=== PATIENT | male | born 1990 | race Caucasian/White ===

== ENCOUNTER → 2016-12-08 | Outpatient (CLI) | payer MEDICARE ==
--- NOTE | 2016-12-08 09:46 | XR ---
Cervical spine HISTORY: Down syndrome, sports physical 5 views of the cervical spine correlated to prior cervical spine CT May 2011 There is head tilt towards the left. Spinal curvature present in the thoracic spine. No significant f oraminal encroachment on oblique views. Cervical vertebral bodies show preserved height, alignment, a nd bone mineralization. Prevertebral soft tissues are within normal limits. Disc spaces are maintain ed. IMPRESSION: Thoracic scoliosis is suspected.
--- NOTE | 2016-12-08 10:06 | ECHOF ---
Referral Reason:Q90.0 down syndrome Z02.5 sports physical MEASUREMENTS -------- HEIGHT: 157.5 cm WEIGHT: 65.8 kg BP: 140/76 RVIDd: 2.0 cm (< 3.3) IVSd: 0.7 cm (0.6 - 1.1) LVIDd: 3.7 cm (3.9 - 5.3) LVPWd: 0.9 cm (0.6 - 1.1) IVSs: 1.2 cm LVIDs: 2.8 cm LVPWs: 1.2 cm LA Diam: 2.2 cm (2.7 - 3.8) Ao Diam: 2.2 cm (2.0 - 3.7) AV Cusp: 1.5 cm (1.5 - 2.6) LA Diam: 2.7 cm (2.7 - 3.8) MV EXCURSION: 14.056 mm (> 18.000) MV EF SLOPE: 88 mm/s (70 - 150) EPSS: 0.7 cm MV E Chase: 1.28 m/s MV DecT: 201 ms MV A Chase: 0.66 m/s MV E/A Ratio: 1.93 FINDINGS -------- Sinus rhythm. This was a technically good study. Left ventricular wall thickness is normal. Overall left ventricular systolic function is normal with, an EF between 55 - 60 %. The right ventricle is normal in size. The left atrial size is normal. The right atrium is normal in size. The aortic valve is trileaflet and appears structurally normal. Mild mitral annular calcification present. Trace tricuspid regurgitation present. Trace/mild (physiologic) pulmonic regurgitation. The aortic root size is normal. Normal inferior vena cava with normal inspiratory collapse consistent with estimated right atrial pressure of 5 mmHg. There is no pericardial effusion. CONCLUSIONS -------- 1. Sinus rhythm. 2. Trace tricuspid regurgitation present. 3. Trace/mild (physiologic) pulmonic regurgitation. 4. The aortic root size is normal. 5. There is no pericardial effusion. 6. This was a technically good study. 7. Left ventricular wall thickness is normal. 8. Overall left ventricular systolic function is normal with, an EF between 55 - 60 %. 9. The right ventricle is normal in size. 10. The left atrial size is normal. 11. The right atrium is normal in size. 12. The aortic valve is trileaflet and appears structurally normal. 13. Mild mitral annular calcification present. MANAGER APPLICATION: Rich Cervantes RDCS
== END | disposition home or self-care (01) ==
LOC: RADECHMAIN 08:17
PROVIDERS: ATTEND Family Medicine
DX: Z02.5 Encounter for examination for participation in sport (principal); I36.1 Nonrheumatic tricuspid (valve) insufficiency; I37.1 Nonrheumatic pulmonary valve insufficiency; I34.8 Other nonrheumatic mitral valve disorders; Q90.9 Down syndrome, unspecified
CPT/HCPCS: 72050; 93306

== ENCOUNTER → 2016-12-29 | Outpatient (CLI) | payer MEDICARE ==
--- NOTE | 2016-12-29 16:34 | XR ---
Cervical spine HISTORY: Down syndrome 2 bilateral views of the cervical spine, correlation to plain film 08 December 2016 Lateral views show flexion and extension views. Atlantodens distance is stable and normal. Prevertebral tissues are somewhat accentuated on extension view show normal appearance on flexion view, etiology is indeterminate but may be artifactual. Bone mineralization is stable. Epiglottis shows a normal appearance in profile. IMPRESSION: Alignment is within normal limits. Additional findings above.
== END | disposition home or self-care (01) ==
LOC: RADXRMAIN 15:00
PROVIDERS: ATTEND Family Medicine
DX: Q90.9 Down syndrome, unspecified (principal)
CPT/HCPCS: 72040

== ENCOUNTER → 2018-01-04 | Outpatient (CLI) | payer MEDICARE, OTHER ==
--- NOTE | 2018-01-04 10:49 | US ---
EXAMINATION TYPE: US abdomen comp/pelvis limited DATE OF EXAM: 01/04/2018 COMPARISON: None CLINICAL HISTORY: 27-year-old male R63.5 weight gain, R11.10 inter vomiting. Technique: Multiple sonographic images of the abdomen and bladder are obtained. FINDINGS: [employer] CONSULTANT AND DESIGNER NOTES: Difficult and limited exam due to overlying bowel gas and patient inability to study coordinator perate. Patient is special needs and non-verbal. Bloating, nausea Liver Length: 17.6 cm Gallbladder Wall: 0.2 cm CBD: 0.3 cm Spleen: 8.3 cm Right Kidney: 9.0 x 3.7 x 4.2 cm Left Kidney: 9.4 x 4.1 x 4.5 cm Prominent fluid-filled stomach noted. Pancreas: Obscured by bowel gas Liver: Heterogeneous, measuring upper limits of normal Gallbladder: wnl CBD: wnl Spleen: wnl Right Kidney: No hydronephrosis. Left Kidney: No hydronephrosis. Upper IVC: wnl as visualized Abd Aorta: Limited visualization due to overlying bowel gas, visualized portions appear wnl Bladder: Not fully distended. However, the wall shows moderate circumferential thickening measuring 1 .4 cm Bilateral Jets Seen Yes IMPRESSION: 1. Moderate circumferential bladder wall thickening. Correlate for possible cystitis or thickening fr om other etiologies such as neurogenic bladder. 2. Borderline hepatomegaly with heterogeneous appearance. Correlate for possible nonspecific hepatoce llular disease.
== END | disposition home or self-care (01) ==
LOC: EEVIPCON 09:00 → RADUSWWP 09:00
PROVIDERS: ATTEND Family Medicine
DX: N32.89 Other specified disorders of bladder (principal); R16.0 Hepatomegaly, not elsewhere classified; Q90.9 Down syndrome, unspecified; R11.10 Vomiting, unspecified; R63.5 Abnormal weight gain
CPT/HCPCS: 76700; 76857

== ENCOUNTER → 2018-07-01 | Outpatient (CLI) | payer MEDICARE, OTHER ==
[2018-07-01 10:19] LABS: Basophils # (A) 0.1 k/uL (0-0.2); Basophils % (A) 2 %; Eosinophils # (A) 0.2 k/uL (0-0.7); Eosinophils % (A) 3 %; HCT 50.7 % (39.0-53.0); Lymphocytes # (A) 2.6 k/uL (1.0-4.8); Lymphocytes % (A) 40 %; MCHC 33.6 g/dL (31.0-37.0); MCV 92.5 fL (80.0-100.0); Mean Platelet Volume 6.7; Monocytes # (A) 0.4 k/uL (0-1.0); Monocytes % (A) 7 %; Neutrophils # (A) 2.8 k/uL (1.3-7.7); Neutrophils % (A) 44 %; Platelet Count 379 k/uL (150-450); RBC 5.48 m/uL (4.30-5.90); RDW 13.3 % (11.5-15.5); WBC 6.4 k/uL (3.8-10.6)
[2018-07-01 10:49] LABS: ALT 38 U/L (21-72); AST 24 U/L (17-59); Albumin 4.4 g/dL (3.5-5.0); Alkaline Phosphatase 75 U/L (38-126); Anion Gap 10 mmol/L; Blood Urea Nitrogen 17 mg/dL (9-20); Calcium 9.4 mg/dL (8.4-10.2); Carbon Dioxide 25 mmol/L (22-30); Chloride 105 mmol/L (98-107); Cholesterol 261 mg/dL (<200); Glucose 101 mg/dL (74-99); HDL Cholesterol 35 mg/dL (40-60); LDL Cholesterol,Calculated 173 mg/dL (0-99); Potassium 4.7 mmol/L (3.5-5.1); Sodium 140 mmol/L (137-145); Total Bilirubin 0.6 mg/dL (0.2-1.3); Total Protein 8.1 g/dL (6.3-8.2); Triglycerides 266 mg/dL (<150)
[2018-07-01 11:43] LABS: T4, Free (Free Thyroxine) 0.97 ng/dL (0.78-2.19)
== END | disposition home or self-care (01) ==
LOC: LABWHC1 10:04
PROVIDERS: ATTEND Family Medicine
DX: Z00.00 Encounter for general adult medical examination without abnormal findings (principal); E03.9 Hypothyroidism, unspecified; E78.2 Mixed hyperlipidemia; Z71.82 Exercise counseling; Z71.3 Dietary counseling and surveillance; Z68.33 Body mass index [BMI] 33.0-33.9, adult
CPT/HCPCS: 36415; 80053; 80061; 82306; 84439; 84443; 84481; 85025

== ENCOUNTER → 2019-06-05 | Outpatient (CLI) | payer MEDICARE, OTHER ==
[2019-06-05 17:55] LABS: Albumin 4.5 g/dL (3.80-4.90); Albumin/Globulin Ratio 2.05 (1.60-3.17); Anion Gap 11.8 mmol/L (4.00-12.00); Calcium 9.5 mg/dL (8.7-10.3); Carbon Dioxide 25.2 mmol/L (21.6-31.8); Globulin 2.2 g/dL (1.6-3.3); LDL Cholesterol,Calculated 72.2 mg/dL (0.0-131.0); Potassium 4.9 mmol/L (3.5-5.5); Total Bilirubin 0.4 mg/dL (0.2-1.2); Total Protein 6.7 g/dL (6.2-8.2); VLDL Calculation 28.8 mg/dL (5.00-40.00)
[2019-06-05 18:03] LABS: T4, Free (Free Thyroxine) 1.1 ng/dL (0.80-1.80)
== END | disposition home or self-care (01) ==
LOC: LABWHC1 08:48
DX: E03.9 Hypothyroidism, unspecified (principal); E78.2 Mixed hyperlipidemia
CPT/HCPCS: 36415; 80053; 80061; 84439; 84443; 84481

== ENCOUNTER → 2019-12-04 | Outpatient (CLI) | payer MEDICARE, OTHER ==
[2019-12-04 16:00] LABS: African American GFR (CKD) 118.2 (60.0-200.0); Albumin 4.6 g/dL (3.80-4.90); Anion Gap 6.9 mmol/L (4.00-12.00); Calcium 9.2 mg/dL (8.7-10.3); Carbon Dioxide 25.1 mmol/L (21.6-31.8); Chol/HDL Ratio 4.19; Globulin 2.3 g/dL (1.6-3.3); LDL Cholesterol,Calculated 82.2 mg/dL (0.0-131.0); Potassium 4.5 mmol/L (3.5-5.5); Total Bilirubin 0.4 mg/dL (0.2-1.2); Total Protein 6.9 g/dL (6.2-8.2); VLDL Calculation 35.8 mg/dL (5.00-40.00)
[2019-12-04 16:06] LABS: T4, Free (Free Thyroxine) 1.4 ng/dL (0.80-1.80)
== END | disposition home or self-care (01) ==
LOC: LABWHC1 08:32
DX: E03.9 Hypothyroidism, unspecified (principal); E78.2 Mixed hyperlipidemia
CPT/HCPCS: 36415; 80053; 80061; 84439; 84443

== ENCOUNTER → 2020-08-16 | Outpatient (CLI) | payer MEDICARE, OTHER ==
[2020-08-16 09:28] LABS: Basophils # (A) 0.1 k/uL (0-0.2); Basophils % (A) 2 %; Eosinophils # (A) 0.2 k/uL (0-0.7); Eosinophils % (A) 3 %; HCT 53.3 % (39.0-53.0); HGB 17.1 gm/dL (13.0-17.5); Lymphocytes # (A) 2.9 k/uL (1.0-4.8); Lymphocytes % (A) 42 %; MCH 30.4 pg (25.0-35.0); MCV 94.9 fL (80.0-100.0); Mean Platelet Volume 7.1; Monocytes # (A) 0.4 k/uL (0-1.0); Monocytes % (A) 6 %; Neutrophils % (A) 43 %; Platelet Count 359 k/uL (150-450); RBC 5.62 m/uL (4.30-5.90); RDW 12.6 % (11.5-15.5); WBC 6.9 k/uL (3.8-10.6)
[2020-08-16 17:47] LABS: African American GFR (CKD) 134.2 (60.0-200.0); Albumin 4.8 g/dL (3.80-4.90); Albumin/Globulin Ratio 1.78 (1.60-3.17); Anion Gap 12.1 mmol/L (4.00-12.00); BUN/Creat Ratio 16.67 Ratio (12.00-20.00); Calcium 9.6 mg/dL (8.7-10.3); Carbon Dioxide 20.9 mmol/L (21.6-31.8); Globulin 2.7 g/dL (1.6-3.3); Non-African American GFR(CKD) 115.8 (60.0-200.0); Potassium 4.8 mmol/L (3.5-5.5); Total Bilirubin 0.6 mg/dL (0.2-1.2); Total Protein 7.5 g/dL (6.2-8.2)
== END | disposition home or self-care (01) ==
LOC: LABWHC1 08:49
PROVIDERS: ATTEND Family Medicine
DX: E03.9 Hypothyroidism, unspecified (principal); Q90.9 Down syndrome, unspecified
CPT/HCPCS: 36415; 80053; 82306; 84443; 85025

== ENCOUNTER 2024-10-25 12:09 | Emergency (ER) | payer MEDICARE, OTHER ==
--- NOTE | 2024-10-25 12:35 | ED ---
URI HPI <Alexa Avelar - Last Filed: 10/25/24 12:32> <Pedro Sanchez - Last Filed: 10/25/24 17:08> - General Stated Complaint: poss pnemonia Time Seen by Provider: 10/25/24 12:32 - History of Present Illness Initial Comments: Tamika waller is a 34-year-old male with history of Down syndrome presenting to the ER with guardian for cough x 2 days. Patient was seen at urgent care this morning where they noted his oxygen to be low and advised patient to come to the ER for further evaluation. (Alexa Avelar) This is a 34-year-old male who has Down syndrome whose guardian is with him and gives all of the history. Patient comes in because been coughing for 2 days and when he went to the urgent care he was desatting so they sent him into the emergency department. Patient himself gives no history. Mom states that there is no history of any fever and the patient never has any complaints so it is difficult to assess. Patient was satting 91% on room air (Pedro Sanchez) - Related Data Home Medications Medication Instructions Recorded Confirmed Levothyroxine Sodium [Synthroid] 100 mcg PO DAILY 10/25/24 10/25/24 Rosuvastatin [Crestor] 20 mg PO DAILY 10/25/24 10/25/24 Previous Rx's Medication Instructions Recorded Albuterol Inhaler [Ventolin Hfa 1 - 2 puff INHALATION Q6HR PRN #2 10/25/24 Inhaler] each Azithromycin [Zithromax Tri-Wagner (3 500 mg PO DAILY 3 Days #3 tab 10/25/24 tabs)] predniSONE [Deltasone] 40 mg PO DAILY #8 tab 10/25/24 Allergies Allergy/AdvReac Type Severity Reaction Status Date / Time No Known Allergies Allergy Verified 10/25/24 12:35 Review of Systems ROS Other: All systems not noted in ROS Statement are negative. <Alexa Avelar - Last Filed: 10/25/24 12:32> ROS Other: All systems not noted in ROS Statement are negative. <Pedro Sanchez - Last Filed: 10/25/24 17:08> ROS Statement: Those systems with pertinent positive or pertinent negative responses have been documented in the HPI. Past Medical History Past Medical History: Thyroid Disorder Additional Past Medical History / Comment(s): Down's syndrome History of Any Multi-Drug Resistant Organisms: None Reported Additional Past Surgical History / Comment(s): left wrist Past Psychological History: No Psychological Hx Reported Past Alcohol Use History: None Reported Past Drug Use History: None Reported <Alexa Avelar - Last Filed: 10/25/24 12:32> General Exam <Alexa Avelar - Last Filed: 10/25/24 12:32> <Pedro Sanchez - Last Filed: 10/25/24 17:08> - General Exam Comments Initial Comments: Visual Physical Exam Vital signs reviewed General: Well-appearing, nontoxic, no acute distress. Head: Normocephalic, atraumatic Eyes: PERRLA, EOMI ENT: Airway patent Chest: Nonlabored breathing Skin: No visual rash, normal skin tone Neuro: Alert and oriented 3 Musculoskeletal: No gross abnormalities (Alexa Avelar) GENERAL: Patient is well-developed and well-nourished. Patient is nontoxic and well- hydrated and is in no acute distress. ENT: Neck is soft and supple. No significant lymphadenopathy is noted. Oropharynx is clear. Moist mucous membranes. Neck has full range of motion without eliciting any pain. EYES: The sclera were anicteric and conjunctiva were pink and moist. Extraocular movements were intact and pupils were equal round and reactive to light. Eyelids were unremarkable. PULMONARY: Unlabored respirations. Patient has some expiratory wheezing CARDIOVASCULAR: There is a regular rate and rhythm without any murmurs gallops or rubs. ABDOMEN: Soft and nontender with normal bowel sounds. No palpable organomegaly was noted. There is no palpable pulsatile mass. SKIN: Skin is clear with no lesions or rashes and otherwise unremarkable. NEUROLOGIC: Patient is alert and oriented x3. Cranial nerves II through XII are grossly intact. Motor and sensory are also intact. Normal speech, volume and content. Symmetrical smile. MUSCULOSKELETAL: Normal extremities with adequate strength and full range of motion. LYMPHATICS: No significant lymphadenopathy is noted PSYCHIATRIC: Normal psychiatric evaluation. (Pedro Sanchez) Course Vital Signs 10/25/24 10/25/24 10/25/24 12:36 14:14 14:31 Temperature 97.6 F Pulse Rate 106 H 97 95 Respiratory 20 20 Rate Blood Pressure 117/75 138/84 O2 Sat by Pulse 92 L 91 L Oximetry 10/25/24 14:59 Temperature Pulse Rate 113 H Respiratory Rate Blood Pressure O2 Sat by Pulse Oximetry Medical Decision Making <ValentinoAlexa - Last Filed: 10/25/24 12:32> - Lab Data Result diagrams: 10/25/24 14:23 10/25/24 14:23 <Pedro Sanchez - Last Filed: 10/25/24 17:08> - Medical Decision Making I completed the quick note portion of this chart signed Alexa Avelar PA-C (Alexa Avelar) EKG is interpreted by myself. EKG shows a sinus rhythm at 93 bpm. Over the 134 QRS is 100 QT interval is 359 QTc is 410. Patient's EKG shows no ST segment elevation or depression. Was pt. sent in by a medical professional or institution (LEIA Khalil, BOX OFFICE AGENT, urgent care, hospital, or skilled nursing...) When possible be specific @ -No Did you speak to anyone other than the patient for history (EMS, parent, family, police, friend...)? What history was obtained from this source @ -No Did you review nursing and triage notes (agree or disagree)? Why? @ -I reviewed and agree with nursing and triage notes Were old charts reviewed (outside hosp., previous admission, EMS record, old EKG, old radiological studies, urgent care reports/EKG's, skilled nursing records)? Report findings @ -No old charts were reviewed Differential Diagnosis? @ -COVID, bronchitis, pneumonia, influenza, this is not an all-inclusive list EKG interpreted by me (3pts min.). @ -As above X-rays interpreted by me (1pt min.). @ -X-ray shows a right-sided opacification CT interpreted by me (1pt min.). @ -None done U/S interpreted by me (1pt. min.). @ -None done What testing was considered but not performed or refused? (CT, X-rays, U/S, labs)? Why? @ -None What meds were considered but not given or refused? Why? @ -None Did you discuss the management of the patient with other professionals (professionals i.e. , LEIA, BOX OFFICE AGENT, lab, RT, psych nurse, social secretary, spinning and winding supervisor, teacher, campus police officer, field nurse case manager)? Give summary @ -No Was smoking cessation discussed for >3mins.? @ -No Was critical care preformed (if so, how long)? @ -No Were there social determinants of health that impacted care today? How? (Homelessness, low income, unemployed, alcoholism, drug addiction, transportation, low edu. Level, literacy, decrease access to med. care, fci, rehab)? @ -No Was there de-escalation of care discussed even if they declined (Discuss DNR or withdrawal of care, Hospice)? DNR status @ -No What co-morbidities impacted this encounter? (DM, HTN, Smoking, COPD, CAD, Cancer, CVA, ARF, Chemo, Hep., AIDS, mental health diagnosis, sleep apnea, morbid obesity)? @ -None Was patient admitted / discharged? Hospital course, mention meds given and route, prescriptions, significant lab abnormalities, going to OR and other pert inent info. @ -Patient was wheezing on arrival he did get 3 breathing treatments while in the emergency department while steroids and antibiotics. Patient family did not think he would do very well in the hospital because of his Down syndrome so they want to try taking him home and give him antibiotics and inhaler and steroids at home and if he got worse to bring him back. Undiagnosed new problem with uncertain prognosis? @ -No Drug Therapy requiring intensive monitoring for toxicity (Heparin, Nitro, Insulin, Cardizem)? @ -No Were any procedures done? @ -No Diagnosis/symptom? @ -Pneumonia Acute, or Chronic, or Acute on Chronic? @ -Acute Uncomplicated (without systemic symptoms) or Complicated (systemic symptoms)? @ -Complicated Side effects of treatment? @ -No Exacerbation, Progression, or Severe Exacerbation? @ -No Poses a threat to life or bodily function? How? (Chest pain, [place], [place], pneumonia, PE, COPD, DKA, ARF, appy, cholecystitis, CVA, Diverticulitis, Homicidal, Suicidal, threat to staff... and all critical care pts) @ -Yes this can lead to hypoxia and endorgan dysfunction Diagnosis/symptom? @ -Bronchospasms Acute, or Chronic, or Acute on Chronic? @ -Acute Uncomplicated (without systemic symptoms) or Complicated (systemic symptoms)? @ -Complicated Side effects of treatment? @ -None Exacerbation, Progression, or Severe Exacerbation] @ -No Poses a threat to life or bodily function? @ -Yes this can lead to hypoxia and endorgan dysfunction (Pedro Sanchez) - Lab Data Lab Results 10/25/24 10/25/24 10/25/24 Range/Units 13:07 14:23 14:23 WBC 13.8 H (3.8-10.6) k/uL RBC 4.63 (4.30-5.90) m/uL Hgb 14.8 (13.0-17.5) gm/dL Hct 44.3 (39.0-53.0) % MCV 95.7 (80.0-100.0) fL MCH 32.0 (25.0-35.0) pg MCHC 33.4 (31.0-37.0) g/dL RDW 12.6 (11.5-15.5) % Plt Count 451 H (150-450) k/uL MPV 7.8 Neutrophils % 75 % Lymphocytes % 16 % Monocytes % 6 % Eosinophils % 1 % Basophils % 1 % Neutrophils # 10.3 H (1.3-7.7) k/uL Lymphocytes # 2.2 (1.0-4.8) k/uL Monocytes # 0.8 (0-1.0) k/uL Eosinophils # 0.1 (0-0.7) k/uL Basophils # 0.1 (0-0.2) k/uL Sodium 139 (137-145) mmol/L Potassium 4.2 (3.5-5.1) mmol/L Chloride 103 (98-107) mmol/L Carbon Dioxide 26 (22-30) mmol/L Anion Gap 10 mmol/L BUN 12 (9-20) mg/dL Creatinine 0.90 (0.66-1.25) mg/dL Est GFR (CKD-EPI)AfAm >90 (>60 ml/min/1.73 sqM) Est GFR (CKD-EPI)NonAf >90 (>60 ml/min/1.73 sqM) Glucose 115 H (74-99) mg/dL Calcium 8.8 (8.4-10.2) mg/dL Total Bilirubin 0.5 (0.2-1.3) mg/dL AST 33 (17-59) U/L ALT 40 (4-49) U/L Alkaline Phosphatase 102 (38-126) U/L Total Protein 7.5 (6.3-8.2) g/dL Albumin 4.2 (3.5-5.0) g/dL Influenza Type A (PCR) Not Detected (Not Detectd) Influenza Type B (PCR) Not Detected (Not Detectd) RSV (PCR) Not Detected (Not Detectd) SARS-CoV-2 (PCR) Not Detected (Not Detectd) Disposition <Alexa Avelar - Last Filed: 10/25/24 12:32> Is patient prescribed a controlled substance at d/c from ED?: No Time of Disposition: 17:07 <Pedro Sanchez - Last Filed: 10/25/24 17:08> Clinical Impression: Pneumonia, Acute bronchospasm Disposition: HOME SELF-CARE Instructions (If sedation given, give patient instructions): Community Acquired Pneumonia (ED), Bronchospasm (ED) Additional Instructions: Patient needs to return if there is any new or worsening symptoms Prescriptions: predniSONE [Deltasone] 40 mg PO DAILY #8 tab Albuterol Inhaler [Ventolin Hfa Inhaler] 1 - 2 puff INHALATION Q6HR PRN #2 each PRN Reason: Difficulty breathing Azithromycin [Zithromax Tri-Wagner (3 tabs)] 500 mg PO DAILY 3 Days #3 tab Referrals: [facility] [NON-STAFF] - 1-2 days (Contact to [facility] established with a new Primary Care Provider. ) Jami Matthews NPC [REFERRING] - 1-2 days Forms: Area PCPs
--- NOTE | 2024-10-25 13:36 | XR ---
EXAMINATION TYPE: XR chest 2V DATE OF EXAM: 10/25/2024 1:04 PM COMPARISON: None CLINICAL INDICATION: Male, 34 years old with history of cough; TECHNIQUE: XR chest 2V Frontal and lateral views of the chest. FINDINGS: Lungs/Pleura: Right medial lung airspace opacitiese. There is no evidence of pleural effusion, focal consolidation, or pneumothorax. Pulmonary vascularity: Unremarkable. Heart/mediastinum: Cardiomediastinal silhouette is unremarkable. Musculoskeletal: No acute osseous pathology. IMPRESSION: Airspace opacities in the right medial lung correlate for pneumonia X-Ray Vin Romo, , 10/25/2024 1:34 PM
[2024-10-25] MEDS: methylPREDNISolone SOD SUCCI 125 MG/2 ML VIAL IV STA (14:26)
[2024-10-25] MEDS: cefTRIAXone IN SWFI 1,000 MG/10 ML SYRINGE IVP STA ×2 (14:26→14:27)
[2024-10-25] MEDS: IPRATROPIUM 0.5 MG/2.5 ML NEBU INHALATION STA (14:30)
[2024-10-25] MEDS: ALBUTEROL NEBULIZED 2.5 MG/3 ML INHALATION STA (14:30)
[2024-10-25 14:39] LABS: Basophils # (A) 0.1 k/uL (0-0.2); Basophils % (A) 1 %; Eosinophils # (A) 0.1 k/uL (0-0.7); Eosinophils % (A) 1 %; HCT 44.3 % (39.0-53.0); HGB 14.8 gm/dL (13.0-17.5); Lymphocytes # (A) 2.2 k/uL (1.0-4.8); Lymphocytes % (A) 16 %; MCHC 33.4 g/dL (31.0-37.0); MCV 95.7 fL (80.0-100.0); Mean Platelet Volume 7.8; Monocytes # (A) 0.8 k/uL (0-1.0); Monocytes % (A) 6 %; Neutrophils # (A) 10.3 k/uL (1.3-7.7); Neutrophils % (A) 75 %; Platelet Count 451 k/uL (150-450); RBC 4.63 m/uL (4.30-5.90); RDW 12.6 % (11.5-15.5); WBC 13.8 k/uL (3.8-10.6)
[2024-10-25 14:54] LABS: ALT 40 U/L (4-49); AST 33 U/L (17-59); African American GFR (CKD) >90 (>60 ml/min/1.73 sqM); Albumin 4.2 g/dL (3.5-5.0); Alkaline Phosphatase 102 U/L (38-126); Anion Gap 10 mmol/L; Blood Urea Nitrogen 12 mg/dL (9-20); Calcium 8.8 mg/dL (8.4-10.2); Carbon Dioxide 26 mmol/L (22-30); Chloride 103 mmol/L (98-107); Glucose 115 mg/dL (74-99); Non-African American GFR(CKD) >90 (>60 ml/min/1.73 sqM); Potassium 4.2 mmol/L (3.5-5.1); Sodium 139 mmol/L (137-145); Total Bilirubin 0.5 mg/dL (0.2-1.3); Total Protein 7.5 g/dL (6.3-8.2)
[2024-10-25] MEDS: IPRATROPIUM-ALBUTEROL 3 ML NEB INHALATION STA (17:19)
[2024-10-25] MEDS: AZITHROMYCIN 500 MG TAB PO STA (17:23)
[2024-10-25 17:36] VITALS: BP 132/83; PULSE 98; RESP 18; TEMP 98
== END 2024-10-25 17:34 | disposition home or self-care (01) ==
LOC: EC 12:09
DX: J18.9 Pneumonia, unspecified organism (principal); J98.01 Acute bronchospasm
CPT/HCPCS: 99284; 36415; 94640 ×2; 93005; 80053; 84436; 85025; 87636; 71046; 96374; 96375; J0696; J2919